=== PATIENT | female | born 1945 | race Caucasian/White ===

== ENCOUNTER 2018-02-11 11:57 | Emergency (ER) | payer OTHER, MEDICARE ==
[~2018-02-11] VITALS: Ht 160 cm; Wt 67.1 kg
[~2018-02-11 11:57] MED LIST: AMLODIPINE BESYL5 M1 PO; ESTRADIOL0.5 M1 PO; LISINOPRIL40 M1 PO; MEDROXYPROGEST2.5 M2 PO; POTASSIUM CHLO20 ME2 PO; PRAVASTATIN SOD40 M2 PO
--- NOTE | 2018-02-11 12:02 | ED GENERAL ADULT ---
History of Present Illness General Chief Complaint: Syncope and Near-Syncope Stated Complaint: BIBA WITH NEAR SYNCOPE Source: patient Exam Limitations: no limitations Vital Signs & Intake/Output Vital Signs & Intake/Output Vital Signs Date Time Temp Pulse Resp B/P B/P Pulse O2 O2 Flow FiO2 Mean Ox Delivery Rate 02/11 2007 99.1 83 16 141/66 95 Room Air 02/11 1815 97 18 160/100 99 Room Air 02/11 1340 97.1 88 18 142/70 97 Room Air 02/11 1338 98 Room Air 02/11 1205 8.1 92 18 150/71 96 Room Air ED Intake and Output 02/12 0000 02/11 1200 Intake Total 0 Output Total Balance 0 Intake, Oral 0 Patient 148 lb Weight Triage Nurses Notes Reviewed? yes Onset: Abrupt Duration: week(s): Timing: recent history HPI: 02/11/18 73-year-old female presents to the emergency department complaining of severe back pain. The patient states that she's had chronic back pain in her thoracic and lumbar spine. Over the past 72 hours has become severe and it was so intense that she almost passed out today she denies chest pain or shortness of breath. She's been having difficulty ambulating secondary to the pain, and she lives by herself. (Silvino Stuart DO) Allergies Coded Allergies: No Known Allergies (02/11/18) Reconcile Medications Amlodipine Besylate 5 MG TABLET 1 TAB PO DAILY HIGH BLOOD PRESSURE (Reported) Baclofen 10 MG TABLET 1 TAB PO TIDPRN PRN muscle spasm/strain Estradiol 0.5 MG TABLET 1 TAB PO DAILY SEXUAL HEALTH (Reported) Ibuprofen 600 MG TABLET 1 TAB PO Q6P PRN pain with food Lisinopril 40 MG TABLET 1 TAB PO DAILY HIGH BLOOD PRESSURE (Reported) Medroxyprogesterone Acetate 2.5 MG TABLET 1 TAB PO DAILY SEXUAL HEALTH ( Reported) Methylprednisolone. (Medrol) 4 MG TAB.DS.PK 0 PO SEE ADMIN CRITERIA arthritis Potassium Chloride 20 MEQ TAB.ER.PRT 1 TAB PO DAILY HEART HEALTH (Reported) Red Yeast Rice 600 MG CAPSULE 1 TAB PO DAILY SUPPLEMENT (Reported) (Brianne CONTRERAS,Laith) Past History Travel History Traveled to [place] past 21 day No Medical History Any Pertinent Medical History? 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 No (Silvino Stuart DO) Review of Systems Review of Systems Constitutional: Denies: fever. EENTM: Reports: no symptoms. Respiratory: Denies: short of breath. Cardiovascular: Denies: chest pain. GI: Denies: abdominal pain. Genitourinary: Reports: no symptoms. Musculoskeletal: Reports: see HPI. Skin: Denies: rash. Neurological/Psychological: Denies: headache. Hematologic/Endocrine: Reports: no symptoms. Immunologic/Allergic: Reports: no symptoms. (Silvino Stuart DO) Physical Exam Physical Exam General Appearance: alert, awake, anxious, mild distress Head: atraumatic, normal appearance Eyes: Bilateral: normal appearance, PERRL, EOMI. Ears, Nose, Throat: normal pharynx, normal ENT inspection Neck: normal inspection, supple Respiratory: normal breath sounds, chest non-tender, no respiratory distress Cardiovascular: regular rate/rhythm Peripheral Pulses: 4+ radial (R), 4+ radial (L) Gastrointestinal: soft, non-tender Back: vertebral tenderness, decreased range of motion Extremities: no edema Neurologic/Psych: no motor/sensory deficits, awake, alert, oriented x 3 Skin: intact, normal color, warm/dry Core Measures ACS in differential dx? No CVA/TIA Diagnosis: No Sepsis Present: No Sepsis Focused Exam Completed? No (Silvino Stuart DO) Progress Differential Diagnoses I considered the following diagnoses in my evaluation of the patient: [Aortic dissection, arthritis, disc herniation, pyelonephritis,] (Silvino Stuart DO) Plan of Care: Orders Procedure Date/time Status Heart Healthy Diet 02/11 D Active CASE MANAGEMENT CONSULT 02/11 2014 Active TROPONIN LEVEL 02/11 1858 Complete EKG 02/11 1858 Active Add-on Test (ER Only) 02/11 1222 Active Saline Lock 02/11 1206 Active Telemetry/Cinder Dump Crane Operator 02/11 1206 Active TROPONIN LEVEL 02/11 1206 Complete D-DIMER 02/11 1206 Complete COMPREHENSIVE METABOLIC PANEL 02/11 1206 Complete CBC WITHOUT DIFFERENTIAL 02/11 1206 Complete EKG 02/11 1206 Active Laboratory Tests 02/11/18 1908: Troponin I < 0.01 02/11/18 1226: Anion Gap 13, Estimated GFR > 60, BUN/Creatinine Ratio 22.9, Glucose 85, Calcium 10.3 H, Total Bilirubin 1.1, AST 25, ALT 23, Alkaline Phosphatase 95, Troponin I < 0.01, Total Protein 6.7, Albumin 4.2, Globulin 2.5, Albumin/Globulin Ratio 1.7, CBC w Diff NO MAN DIFF REQ, RBC 4.28, MCV 89.8, MCH 30.4, MCHC 33.8, RDW 13.3, MPV 8.4, Gran % 73.8, Lymphocytes % 15.1 L, Monocytes % 10.3 H, Eosinophils % 0.5, Basophils % 0.3, Absolute Granulocytes 8.8 H, Absolute Lymphocytes 1.8, Absolute Monocytes 1.2 H, Absolute Eosinophils 0.1, Absolute Basophils 0 02/11/18 1206: D-Dimer High Sensitivty 270 H Diagnostic Imaging: Viewed by Me: CT Scan. Discussed w/RAD: CT Scan. Radiology Impression: No evidence of PE. No evidence of thoracic or abdominal No acute process seen in the chest. Aortic dissection or aneurysm. Mild atherosclerotic changes of aorta throughout. Scattered descending colon diverticulosis and mild constipation throughout the colon but no obstruction. Normal appendix. Degenerative disc changes with mild dorsal lumbar scoliosis. No fracture seen. Initial ED EKG: normal axis, normal intervals, normal p-waves, normal QRS complex, normal sinus rhythm, no ST T wave changes Prior EKG: unchanged Rhythm Strip: normal sinus rhythm (Laith Decker MD) Departure Departure Condition: Stable Clinical Impression Primary Impression: Degenerative arthritis of lumbar spine Secondary Impressions: Back pain Departure Forms: Customer Survey General Discharge Information Comments CTA results shown below PATIENT: PASQUALE KWON PRESENT AGE: 73 PATIENT ACCOUNT NO: [id number] : 43 LOCATION: [facility] ORDERING PHYSICIAN: Silvino Stuart DO SERVICE DATE: 02/11/18 EXAM TYPE: CAT - CT ABD & PELVIS ANGIOGRAM; CTA CHEST-AORTIC DISSECTION EXAMINATION: CT ANGIOGRAM CHEST, ABDOMEN AND PELVIS CLINICAL INFORMATION: Severe back pain with near syncope. COMPARISON: None TECHNIQUE: Multiple axial images were obtained through the abdomen and pelvis following the administration of 100 mL of Optiray 320 intravenous contrast. Images were reviewed on a dedicated 3-D workstation. DLP: 816 mGy-cm FINDINGS: CTA AND CT CHEST: There is good opacification of pulmonary artery and its branches without any intraluminal filling defect or narrowing. The entire thoracic aorta is well-opacified without any evidence of aneurysm or dissection. The origins of right brachiocephalic, left common carotid and left subclavian artery are widely patent. The heart size is normal. The tracheal-bronchial tree is widely patent. No abnormal size mediastinal or hilar lymph nodes or mass seen. The thyroid lobes are symmetrical. Both lungs are well-expanded and clear acute pneumonic consolidation. No pulmonary nodule, mass or groundglass density seen. There is minimal bibasilar posterior pleural reactionary changes but no effusion or calcification. The axilla and the chest wall appears unremarkable. CTA ABDOMEN AND CT ABDOMEN AND PELVIS: The entire abdominal aorta is well-opacified without any aneurysm or dissection. There is atherosclerotic calcification of abdominal aorta. There is calcified plaque at the origin of celiac and superior mesenteric artery with no significant stenosis. Solitary bilateral renal arteries are widely patent. The inferior mesenteric artery is widely patent. The abdominal aorta bifurcates into right and left common iliac artery with minimal atherosclerotic calcification and thrombus in the right common iliac artery. There are bilateral symmetrical nephrogram without any enhancing renal mass, cyst or hydronephrosis. No hydronephrosis. The liver is normal size, shape and density. No abnormal enhancing mass or intrahepatic ductal dilatation seen. There are no radiopaque gallstones. The CBD is normal caliber. Visualized spleen, pancreas and bilateral adrenal glands are unremarkable. A 1 mm pancreatic duct is visualized. There is scattered stool seen throughout the colon without any significant distention. There are a few scattered diverticuli in the ascending colon. No evidence of diverticulitis. The small bowel loops are normal caliber. The appendix is normal caliber. The stomach is nondistended and appears unremarkable. There is a small umbilical hernia containing fat. Imaging through the pelvis reveals bladder to be unremarkable. The uterus is anteverted and appears unremarkable no free fluid or adnexal mass seen. No abnormal pelvic or inguinal lymph nodes seen. Mild scoliosis of dorsolumbar spine. No fracture, lytic or sclerotic process seen. Moderate degenerative changes L1-L2 disc level with moderate ventral spondylosis and mild degenerative changes L5-S1 disc level is noted. There is grade 1 anterolisthesis L4-L5. Degenerative facet joint changes L3-L4 and L4-L5 disc levels are noted. IMPRESSION: No evidence of PE. No evidence of thoracic or abdominal No acute process seen in the chest. Aortic dissection or aneurysm. Mild atherosclerotic changes of aorta throughout. Scattered descending colon diverticulosis and mild constipation throughout the colon but no obstruction. Normal appendix. Degenerative disc changes with mild dorsal lumbar scoliosis. No fracture seen. DICTATED BY: Zena CONTRERAS,Leonides DATE/TIME DICTATED:02/11/181807 [employer] PLASTICIAN:AVERY DATE/TIME TRANSCRIBED:02/11/181807 CONFIDENTIAL, DO NOT COPY WITHOUT APPROPRIATE AUTHORIZATION. <Electronically signed in Other Vendor System> SIGNED BY: Zena CONTRERAS,Leonides 02/11/181824 Serial troponins and EKGs are unremarkable. She was given IV pain medication. Trial of ambulation. The patient was signed out to Dr. Decker at 7 PM. She denied any fever or dysuria. (Silvino Stuart DO) Departure Time of Disposition: 2016 Disposition: HOME OR SELF CARE Referrals: Shan CONTRERAS,Juliana (PCP/Family) Johan Middleton MD Call for orthopedic follow up Hugo CONTRERAS,Harish Leach call for neurosurgery follow up Prescriptions: Current Visit Scripts Methylprednisolone. (Medrol) 0 PO SEE ADMIN CRITERIA #1 PAC Baclofen 1 TAB PO TIDPRN PRN muscle spasm/strain #30 TAB Ibuprofen 1 TAB PO Q6P PRN pain #50 TAB with food (Brianne CONTRERAS,Laith) Critical Care Note Critical Care Note Critical Care Time: 30-74 min (Silvino Stuart DO)
[2018-02-11 12:36] LABS: ABSOLUTE BASOPHIL COUNT 0 /CUMM (0.0-0.2); ABSOLUTE EOSINOPHIL COUNT 0.1 /CUMM (0.0-0.7); ABSOLUTE GRANULOCYTE CT 8.8 /CUMM (1.4-6.5); ABSOLUTE LYMPH COUNT 1.8 /CUMM (1.2-3.4); ABSOLUTE MONOCYTE COUNT 1.2 /CUMM (0.10-0.60); BASOPHIL % 0.3 % (0.0-2.0); EOSINOPHIL % 0.5 % (0-5); GRANULOCYTE % 73.8 % (42.2-75.2); HEMATOCRIT 38.4 % (37-47); MEAN CORPUSCULAR HGB 30.4 PG (27.0-31.0); MEAN CORPUSCULAR HGB CONC 33.8 G/DL (33.0-37.0); MEAN CORPUSCULAR VOLUME 89.8 FL (81.0-99.0); MEAN PLATELET VOLUME 8.4 FL (7.4-10.4); PLATELET COUNT 334 /CUMM (130-400); RBC DISTRIBUTION WIDTH 13.3 % (11.5-14.5); RED BLOOD CELL CT 4.28 /CUMM (4.20-5.40); WHITE BLOOD CELL COUNT 11.9 /CUMM (4.8-10.8)
[2018-02-11] MEDS ORDERED: RED YEAST RICE600 M1 PO (14:33)
--- NOTE | 2018-02-11 18:25 | CT SCAN REPORT ---
EXAMINATION: CT ANGIOGRAM CHEST, ABDOMEN AND PELVIS CLINICAL INFORMATION: Severe back pain with near syncope. COMPARISON: None TECHNIQUE: Multiple axial images were obtained through the abdomen and pelvis following the administration of 100 mL of Optiray 320 intravenous contrast. Images were reviewed on a dedicated 3-D workstation. DLP: 816 mGy-cm FINDINGS: CTA AND CT CHEST: There is good opacification of pulmonary artery and its branches without any intraluminal filling defect or narrowing. The entire thoracic aorta is well-opacified without any evidence of aneurysm or dissection. The origins of right brachiocephalic, left common carotid and left subclavian artery are widely patent. The heart size is normal. The tracheal-bronchial tree is widely patent. No abnormal size mediastinal or hilar lymph nodes or mass seen. The thyroid lobes are symmetrical. Both lungs are well-expanded and clear acute pneumonic consolidation. No pulmonary nodule, mass or groundglass density seen. There is minimal bibasilar posterior pleural reactionary changes but no effusion or calcification. The axilla and the chest wall appears unremarkable. CTA ABDOMEN AND CT ABDOMEN AND PELVIS: The entire abdominal aorta is well-opacified without any aneurysm or dissection. There is atherosclerotic calcification of abdominal aorta. There is calcified plaque at the origin of celiac and superior mesenteric artery with no significant stenosis. Solitary bilateral renal arteries are widely patent. The inferior mesenteric artery is widely patent. The abdominal aorta bifurcates into right and left common iliac artery with minimal atherosclerotic calcification and thrombus in the right common iliac artery. There are bilateral symmetrical nephrogram without any enhancing renal mass, cyst or hydronephrosis. No hydronephrosis. The liver is normal size, shape and density. No abnormal enhancing mass or intrahepatic ductal dilatation seen. There are no radiopaque gallstones. The CBD is normal caliber. Visualized spleen, pancreas and bilateral adrenal glands are unremarkable. A 1 mm pancreatic duct is visualized. There is scattered stool seen throughout the colon without any significant distention. There are a few scattered diverticuli in the ascending colon. No evidence of diverticulitis. The small bowel loops are normal caliber. The appendix is normal caliber. The stomach is nondistended and appears unremarkable. There is a small umbilical hernia containing fat. Imaging through the pelvis reveals bladder to be unremarkable. The uterus is anteverted and appears unremarkable no free fluid or adnexal mass seen. No abnormal pelvic or inguinal lymph nodes seen. Mild scoliosis of dorsolumbar spine. No fracture, lytic or sclerotic process seen. Moderate degenerative changes L1-L2 disc level with moderate ventral spondylosis and mild degenerative changes L5-S1 disc level is noted. There is grade 1 anterolisthesis L4-L5. Degenerative facet joint changes L3-L4 and L4-L5 disc levels are noted. IMPRESSION: No evidence of PE. No evidence of thoracic or abdominal No acute process seen in the chest. Aortic dissection or aneurysm. Mild atherosclerotic changes of aorta throughout. Scattered descending colon diverticulosis and mild constipation throughout the colon but no obstruction. Normal appendix. Degenerative disc changes with mild dorsal lumbar scoliosis. No fracture seen.
[2018-02-11 20:07] VITALS: BP 141/66
[2018-02-11] MEDS ORDERED: MEDROL4 M2 PO (20:23)
[2018-02-11] MEDS ORDERED: BACLOFEN10 M1 PO (20:24)
[2018-02-11] MEDS ORDERED: IBUPROFEN600 M1 PO (20:24)
== END 2018-02-11 20:44 ==
LOC: ERH 11:57
PROVIDERS: Emergency Medicine
DX: M47.896 Other spondylosis, lumbar region (principal); M54.6 Pain in thoracic spine; M54.5 Low back pain; I10 Essential (primary) hypertension
CPT/HCPCS: 74174; 93005; 93010; 96374; 96375; J0131; J2930

== ENCOUNTER 2018-02-22 11:07 | Emergency (ER) | payer OTHER, MEDICARE ==
[~2018-02-22] VITALS: Ht 160 cm; Wt 74.8 kg
[~2018-02-22 11:07] MED LIST changes: +BACLOFEN10 M1 PO; +DEXAMETHASONE 1.5 MG PO; +IBUPROFEN600 M1 PO; +MEDROL4 M2 PO; +PERCOCET 5-3251 EACH PO; +RED YEAST RICE600 M1 PO
--- NOTE | 2018-02-22 13:06 | ED GENERAL ADULT ---
See Addendum History of Present Illness General Chief Complaint: Altered Mental Status Stated Complaint: ALTERED PER MEDICATIONS Source: patient Exam Limitations: no limitations Vital Signs & Intake/Output Vital Signs & Intake/Output Vital Signs Date Time Temp Pulse Resp B/P B/P Pulse O2 O2 Flow FiO2 Mean Ox Delivery Rate 02/22 1135 98 Room Air 02/22 1131 98.2 69 18 108/59 98 Room Air Allergies Coded Allergies: No Known Allergies (02/11/18) Reconcile Medications Amlodipine Besylate 5 MG TABLET 1 TAB PO DAILY HIGH BLOOD PRESSURE (Reported) Baclofen 10 MG TABLET 1 TAB PO TIDPRN PRN muscle spasm/strain Dexamethasone (Taperdex) 1.5 MG (21 TABS) TAB.DS.PK 0 PO AD LOW BACK PAIN Estradiol 0.5 MG TABLET 1 TAB PO DAILY SEXUAL HEALTH (Reported) Ibuprofen 600 MG TABLET 1 TAB PO Q6P PRN pain with food Lisinopril 40 MG TABLET 1 TAB PO DAILY HIGH BLOOD PRESSURE (Reported) Medroxyprogesterone Acetate 2.5 MG TABLET 1 TAB PO DAILY SEXUAL HEALTH ( Reported) Methylprednisolone. (Medrol) 4 MG TAB.DS.PK 0 PO SEE ADMIN CRITERIA arthritis Oxycodone HCl/Acetaminophen (Percocet 5-325 MG Tablet) 5 MG-325 MG TABLET 1 TAB PO BID PAIN Potassium Chloride 20 MEQ TAB.ER.PRT 1 TAB PO DAILY HEART HEALTH (Reported) Red Yeast Rice 600 MG CAPSULE 1 TAB PO DAILY SUPPLEMENT (Reported) Triage Note: PT BIBA FROM HOME C/O OF CHRONIC BACK PAIN, SEEN HERE IN ER YESTERDAY. PT STATES SHE WAS SEEN HERE YESTERDAY D/T NOT BEING ABLE TO MOVE FROM CHRONIC LOWER BACK PAIN. PT HAS APPT WITH ON 03/01/18, BUT SINCE YESTERDAY HAS TAKEN 10MG BACLOFEN, 1 TAB PERCOCET AND 600MG MOTRIN AND CURRENTLY "FEELING OUT OF IT" PTS VSS, PT A&0X3, ANSWERING QUESTIONS APPROPRIATELY. Triage Nurses Notes Reviewed? yes HPI: 73-year-old white female who called EMS after she took baclofen and oxycodone for back pain and felt altered from the medication. She denies any speech deficits, arm or leg weakness, dizziness, or visual loss. She denies any paresthesias. She was concerned about the side effect of the medication. She now says that she feels improved although slightly weak. Past History Travel History Traveled to [place] past 21 day No Medical History Any Pertinent Medical History? 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 No Review of Systems Review of Systems Constitutional: Reports: see HPI. Denies: no symptoms, chills, diaphoresis, fever, malaise, weakness, unexplained weight loss. All Other Systems: Reviewed and Negative Physical Exam Physical Exam General Appearance: well developed/nourished, no apparent distress, alert, awake Head: atraumatic, normal appearance Eyes: Bilateral: normal appearance, PERRL, EOMI. Ears, Nose, Throat: normal pharynx Neck: normal inspection, supple, full range of motion Respiratory: normal breath sounds, chest non-tender, no respiratory distress, quiet respiration, lungs clear Cardiovascular: regular rate/rhythm Peripheral Pulses: 4+ femoral (R), 4+ femoral (L), 4+ tibialis posterior (R), 4+ tibialis posterior (L), 4+ dorsalis pedis (R), 4+ dorsalis pedis (L) Gastrointestinal: normal bowel sounds, soft, non-tender, no organomegaly Back: normal inspection, decreased range of motion Extremities: normal inspection, normal capillary refill, normal range of motion, no edema Neurologic/Psych: no motor/sensory deficits, awake, oriented x 3 Core Measures ACS in differential dx? No CVA/TIA Diagnosis: No Sepsis Present: No Sepsis Focused Exam Completed? No Progress Differential Diagnoses I considered the following diagnoses in my evaluation of the patient: [Adverse reaction to medication, stroke, back pain] Plan of Care: Evaluation of gait Initial ED EKG: none Comments: Patient feels improved after sleeping in the emergency department for an hour and a half and is stable for discharge Departure Departure Time of Disposition: 1305 Disposition: HOME OR SELF CARE Condition: Stable Clinical Impression Primary Impression: Adverse drug reaction Qualifiers: Encounter type: initial encounter Qualified Code: T50.905A - Adverse effect of unspecified drugs, medicaments and biological substances, initial encounter Referrals: Juliana Torrez MD (PCP/Family) Additional Instructions: Discontinue use of baclofen Departure Forms: Customer Survey General Discharge Information Critical Care Note Critical Care Note Critical Care Time: non-applicable
[2018-02-22 17:03] VITALS: BP 110/80
== END 2018-02-22 17:13 ==
LOC: ERH 11:07
DX: R41.82 Altered mental status, unspecified (principal); T50.905A Adverse effect of unspecified drugs, medicaments and biological substances, initial encounter; I10 Essential (primary) hypertension; M54.9 Dorsalgia, unspecified